=== PATIENT | male | born 1985 | race Caucasian/White ===

== ENCOUNTER 2024-03-29 18:48 | Emergency (ER) | payer SELFPAY ==
[~2024-03-29] VITALS: Ht 180.3 cm; Wt 127.3 kg
[~2024-03-29 18:48] MED LIST: CEPHALEXIN500 M1 PO; NO HOME MEDICATIONS; PERCOCET 325 MG1 TA2 PO; ULTRAM 50MG TAB50 MG PO
[2024-03-29 19:00] VITALS: TEMP 98.3
[2024-03-29] MEDS ORDERED: CEPHALEXIN500 M1 PO (20:08)
[2024-03-29] MEDS ORDERED: Cephalexin 500 MG CAP PO ONE (20:15)
[2024-03-29 20:23] VITALS: BP 151/88; PULSE 85
[2024-04-12] MEDS ORDERED: CEPHALEXIN500 M1 PO (12:24)
== END 2024-03-29 20:20 | disposition home or self-care (01) ==
LOC: COL.ER 18:48
DX: S81.811A Laceration without foreign body, right lower leg, initial encounter (principal); F17.290 Nicotine dependence, other tobacco product, uncomplicated; Z23 Encounter for immunization; W18.40XA Slipping, tripping and stumbling without falling, unspecified, initial encounter; W22.8XXA Striking against or struck by other objects, initial encounter; Y92.59 Other trade areas as the place of occurrence of the external cause